=== PATIENT | male | born 1995 | race Caucasian/White ===

== ENCOUNTER 2018-01-19 00:08 | Emergency (ER) | payer SELFPAY ==
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
[2018-01-19 00:23] VITALS: BP 129/46
[2018-01-19] MEDS ORDERED: SMZ/TMP 800/160MG TABLET. PO ONE (00:30)
[2018-01-19] MEDS ORDERED: SULF1TAB24 PO (00:33)
[2018-01-19] MEDS ORDERED: TETANUS AND DIPHTHERIA TOX/PF 0.5 ML VIAL. VAX IM ONE (00:45)
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
== END 2018-01-19 01:35 | disposition home or self-care (01) ==
LOC: ER 00:08
DX: S67.22XA Crushing injury of left hand, initial encounter (principal); S61.431A Puncture wound without foreign body of right hand, initial encounter; L03.113 Cellulitis of right upper limb; Z72.0 Tobacco use; Z88.8 Allergy status to other drugs, medicaments and biological substances; W23.0XXA Caught, crushed, jammed, or pinched between moving objects, initial encounter; Y93.89 Activity, other specified; Y99.8 Other external cause status; Y92.89 Other specified places as the place of occurrence of the external cause
CPT/HCPCS: 73130; 90471; 90714; 99284-25